=== PATIENT | female | born 1990 | race Caucasian/White ===

== ENCOUNTER 2023-10-09 20:05 | Emergency (ER) | payer SELFPAY ==
--- NOTE | ~2023-10-09 | US_ITS ---
EXAMINATION: US OB <=14 wk fetus w TV DATE: 10/10/2023 07:08 INDICATION: Vaginal bleeding. . TECHNIQUE: Real-time transabdominal and transvaginal pelvic ultrasound was performed. COMPARISON: None. FINDINGS: TRANSABDOMINAL ULTRASOUND: The uterus measures 10.3 x 4.6 x 7.7 cm. TRANSVAGINAL ULTRASOUND: There is an intrauterine gestational sac. A yolk sac is identified. The fet al crown rump length measures 4 mm, which correlates with an estimated gestational age of 6 weeks and 0 day(s) (+/-) 4 day(s). heart motion is not identified, which may be normal at this size. The right ovary measures 2.5 x 2.1 x 1.9 cm. The left ovary measures 3.5 x 2.8 x 3.1 cm. There is no camilo e fluid in the pelvis. IMPRESSION: 1. Single intrauterine gestation with estimated date of delivery of 06/04/2024. Reviewed, dictated and finalized at location A.
[2023-10-09 20:12] VITALS: BP 107/75; PULSE 80; RESP 20; TEMP 36.6; O2SAT 98
[2023-10-09 22:40] VITALS: BP 116/73; BP 127/74; PULSE 72; RESP 16; TEMP 36.2; O2SAT 100
[2023-10-09 22:55] LABS: BEDSIDEPREGUCG Positive
[2023-10-09 23:19] LABS: Basophils Absolute Auto 0.1 K/mm3 (0.0-0.1); Basophils Percent Auto 0.6 % (0.2-1.2); Eosinophils Absolute Auto 0.3 K/mm3 (0-0.3); Eosinophils Percent Auto 2.6 % (0-4.4); Hemoglobin 11.8 g/dL (12.0-15.0); Immature Granulocyte Absolute 0.04 K/mm3 (0.00-0.031); Immature Granulocyte Percent A 0.4 % (0-0.5); Lymphocytes Absolute Auto 2.85 K/mm3 (0.9-3.2); Mean Corpuscular HGB Conc 31.9 g/dl (32-36); Mean Corpuscular Volume 87.7 fl (80-100); Monocytes Absolute Auto 0.5 K/mm3 (0.1-0.6); Monocytes Percent Auto 4.6 % (2.6-8.5); Neutrophils Absolute Auto 6.8 K/mm3 (1.3-6.7); Neutrophils Percent Auto 64.8 % (45.5-73.1); Platelet Count Result 378 k/mm3 (150-375); Red Blood Count 4.22 M/mm3 (4.2-5.4); Red Cell Distribution Width 13.8 % (11.5-14.5); White Blood Count 10.5 K/mm3 (4.5-10.0)
[2023-10-09 23:29] LABS: Alanine Aminotransferase 10 U/L (6-35); Albumin Level 4.3 g/dL (3.5-5.1); Alkaline Phosphatase 52 U/L (38-126); Anion Gap 11 mmol/L (4-12); Aspartate Amino Transferase 17 U/L (14-36); Bilirubin,Total < 0.1 mg/dL (0.2-1.3); Blood Urea Nitrogen 17 mg/dL (7-17); Calcium 9.7 mg/dL (8.4-10.2); Carbon Dioxide 23 mmol/L (22-30); Chloride 102 mmol/L (98-107); Estimated CRCL calculation 94 ml/min; Estimated Glomerular Filt Rate > 60; Glucose 91 mg/dL (65-110); Potassium 3.7 mmol/L (3.4-5.0); Sodium 136 mmol/L (137-145)
[2023-10-09] MEDS: ONDANSETRON HCL ODT 4 MG TABLET PO (23:58)
[2023-10-09] MEDS: ACETAMINOPHEN 500 MG TABLET 1000 MG PO (23:58)
[2023-10-10 00:26] LABS: Partial Thromboplastin Time 24.3 Seconds (22.3-36.8); Prothrombin Time 13.4 Seconds (11.1-14.7)
[2023-10-10 00:27] LABS: Add Urine Microscopic? YES; Appearance Urine Clear (Clear); Bacteria Urine None Seen /hpf; Bilirubin Urine Negative (Negative); Blood Urine Trace (Negative); Color Urine Yellow (Yellow); Glucose Urine UA Negative (Negative); Ketones Urine Negative (Negative); Leukocyte Esterase Ur Negative LEU/UL (Negative); Nitrate Urine Negative (Negative); Non Pathogenic Casts 0-2; Protein Urine Negative (Negative); Specific Grav Ur 1.025 (1.001-1.035); Squamous Epithelial Cell Urine Occasional /hpf (Few); Urobilinogen Urine 0.2 mg/dL (<2.0); WBC Urine 0-5 /hpf (0-3)
[2023-10-10 01:00] VITALS: BP 133/75; PULSE 77; RESP 16; TEMP 36.6; O2SAT 100
--- NOTE | 2023-10-10 02:14 | ED.FEMALEGU ---
HPI - Female Genitourinary General Chief complaint: Vaginal Bleeding <Lianet Beckford PA-C - Last Filed: 10/10/23 03:14> Stated complaint: +Preg test spotting <STELLA Cordoba Last Filed: 10/10/23 03:14> Time Seen by Provider: 10/09/23 23:05 <STELLA Cordoba Last Filed: 10/10/23 03:14> History of Present Illness HPI Narrative: 32-year-old female who is presents to the emergency department for vaginal bleeding in . Patient's LMP is unknown. She believes it was sometime in August. She states 2 weeks ago she had not got her. She took a test at home which was positive. She states yesterday she had some light vaginal bleeding and today it has increased which prompted her to come to the ED. She states she has not had to wear a pad or tampon but states the bleeding increases when she sits down on the toilet. She states she has passed some clots was not passed tissue. She reports diffuse lower abdominal cramping and nausea. Denies fever, vomiting, vaginal discharge. She is requesting to be tested for STDs but does not want to be empirically treated. She notes that she has a history of high-risk pregnancies and states all of her prior pregnancies have been premature, C-sections, and that 1 of her children had shortly after . She does not have an OBGYN. <Lianet Beckford PA-C - Last Filed: 10/10/23 03:14> Related Data Allergies/Adverse reactions: Allergies Allergy/AdvReac Type Severity Reaction Status Date / Time No Known Allergies Allergy Verified 10/09/23 20:15 <STELLA Cordoba Last Filed: 10/10/23 03:14> Review of Systems Review of Systems: All systems reviewed & are unremarkable except as noted in HPI and below <STELLA Cordoba Last Filed: 10/10/23 03:14> Exam Narrative: GENERAL: Well-appearing, well-nourished, and in no acute distress. HEAD: Normocephalic, atraumatic. EYES: PERRLA and EOMI. ENT: Nares clear, no rhinorrhea or epistaxis. Mucous membranes moist. NECK: Supple. CHEST: Clear to auscultation. No respiratory distress. HEART: Regular rate and rhythm. No murmur heard. Normal peripheral pulses. ABDOMEN: Normoactive bowel sounds. Abdomen soft with mild tenderness to the suprapubic region. No rebound, guarding or rigidity. No CVA tenderness. : Chaperoned by tech Zoë: normal external genitalia. Mild amount of blood in the vaginal vault with no clots or tissues visualized. Cervical os slightly opened. No CMT, adnexal masses or tenderness. EXTREMITIES: Normal range of motion. No edema. SKIN: Warm, dry, no rash. NEURO: No focal deficits. Alert and oriented x3 <STELLA Cordoba Last Filed: 10/10/23 03:14> Course Vital Signs Vital signs: Vital Signs Temperature 36.6 C 10/09/23 20:12 Pulse Rate 80 10/09/23 20:12 Respiratory Rate 20 10/09/23 20:12 Blood Pressure 107/75 10/09/23 20:12 Pulse Oximetry 98 10/09/23 20:12 Oxygen Delivery Room Air 10/09/23 20:12 Temperature 36.8 C 10/10/23 03:21 Pulse Rate 60 10/10/23 03:21 Respiratory Rate 16 10/10/23 03:21 Blood Pressure 100/65 10/10/23 03:21 Pulse Oximetry 100 10/10/23 03:21 Oxygen Delivery Room Air 10/09/23 22:40 <STELLA Cordoba Last Filed: 10/10/23 03:14> Vital Signs Temperature 36.6 C 10/09/23 20:12 Pulse Rate 80 10/09/23 20:12 Respiratory Rate 20 10/09/23 20:12 Blood Pressure 107/75 10/09/23 20:12 Pulse Oximetry 98 10/09/23 20:12 Oxygen Delivery Room Air 10/09/23 20:12 Temperature 36.8 C 10/10/23 03:21 Pulse Rate 60 10/10/23 03:21 Respiratory Rate 16 10/10/23 03:21 Blood Pressure 100/65 10/10/23 03:21 Pulse Oximetry 100 10/10/23 03:21 Oxygen Delivery Room Air 10/09/23 22:40 <Barber Guthrie MD - Last Filed: 10/10/23 04:41> MDM - Female Genitourinary MDM Narrative Medical decision making narrative:
[2023-10-10 03:21] VITALS: BP 100/65; PULSE 60; RESP 16; TEMP 36.8; O2SAT 100
[2023-10-10 03:35] LABS: Trichomonas Vag PCR NOT DETECTED (NOT DETECTE)
[2023-10-10 03:57] LABS: Chlamydia trachomatis DETECTED (NOT DETECTE); Neisseria gonorrhoeae PCR NOT DETECTED (NOT DETECTE)
[2023-10-10] MEDS: cefTRIAXone 1 GM VIAL 0.5 GM IM (04:18)
[2023-10-10] MEDS: AZITHROMYCIN 250 MG TABLET 1000 MG PO (04:18)
== END 2023-10-10 04:47 | disposition home or self-care (01) ==
PROVIDERS: Physician Assistant; Emergency Provider Emergency Medicine
DX: O20.0 Threatened abortion (principal); O98.811 Other maternal infectious and parasitic diseases complicating pregnancy, first trimester; A74.9 Chlamydial infection, unspecified; Z3A.01 Less than 8 weeks gestation of pregnancy
CPT/HCPCS: 36415; 76801; 76817; 80053; 81001; 81025; 84702; 85025; 85461; 85610; 85730; 86850; 86900; 86901; 87491; 87591; 87661; 96372; 99284; A9270; J0696